=== PATIENT | male | born 1970 | race Caucasian/White ===

== ENCOUNTER 2017-09-19 03:33 | Emergency (ER) | payer OTHER, SELFPAY ==
[2017-09-19 03:34] VITALS: BP 149/97; PULSE 63; RESP 18; TEMP 36.4; O2SAT 99; BMI 22.1
--- NOTE | 2017-09-19 04:03 | ED.DCSUM_ITS ---
- ER Visit Summary Date of Service: 09/19/17 Chief Complaint: Rash History of Present Illness: The patient is a [address] Dumont. Patient reports that he is a rash that began 2 days ago. The rash began on his arms. He reports that it itches and guerrero. States that he has a history of eczema/psoriasis and was instructed to use sunscreen. Approximately 2 weeks ago he began using banana boat sunscreen on his arms and upper neck. Patient denies any change in soap, shampoo, laundry detergent, or fabric softener. No new clothing, bedding, carpeting, or pets. No new medications in the past month. Physical Examination: Vitals: Stable. Afebrile. General: Well-nourished and well-developed. Head: Normocephalic atraumatic. Neck: Supple, no lymphadenopathy. No JVD. Nontender. Cardiovascular: Regular rate and rhythm. No murmurs. Respiratory: No respiratory distress. Clear to auscultation bilaterally. Abdominal: Soft, nontender, nondistended, normal bowel sounds. No guarding, rebound, or peritoneal signs. Back: Nontender. Extremities: Erythema to the lateral antecubital fossa and forearms bilaterally. Scattered 3-5 mm erythematous lesions over his back. No hives. No induration or fluctuance. Skin: Normal color, no rash. Neurologic: Alert and oriented ?3. Cranial nerves II through XII are intact. Normal strength and sensation. Psych: Normal affect. Emergency Department Course and Treatment: Patient has already been using Benadryl at home without relief. He is given a dose of prednisone here. Treatment Plan: Patient will be discharged on prednisone instructed to follow- up his primary care physician in 3-5 days not improving. I did discuss them the likelihood that this is due to the sunscreen and have instructed him to not use this any longer. Return to the emergency department for any worsening symptoms. Disposition: To home in improved and stable condition. Impression: 1. Rash, uncertain cause. This note was generated with [employer] dictation software. It may contain incorrect words, spelling, and punctuation that were not noted in review of the chart prior to signing ED Disposition - Plan for ED Patient: Disposition: Home or Assisted Living Chief Complaint: Allergic Reaction Instructions: ED Dermatitis Contact Prescriptions: Prednisone [Deltasone] 60 mg PO DAILY #15 tablet Referrals: Irineo Dumont MD [Primary Care Provider] - 3-5 Days if not improving
[2017-09-19] MEDS: predniSONE 20 MG Tablet 60 MG PO (04:12)
[2017-09-19 04:13] VITALS: RESP 16
== END 2017-09-19 04:13 | disposition home or self-care (01) ==
PROVIDERS: Emergency Provider Emergency Medicine; Family Provider Family Medicine; PCP Family Medicine
DX: R21 Rash and other nonspecific skin eruption (principal); F17.200 Nicotine dependence, unspecified, uncomplicated
CPT/HCPCS: 99283

== ENCOUNTER 2021-10-23 16:43 | Emergency (ER) | payer OTHER, SELFPAY ==
[2021-10-23 16:43] VITALS: BP 118/92; PULSE 145; RESP 16; TEMP 36.8; O2SAT 98; BMI 20.7
--- NOTE | 2021-10-23 17:28 | ED.RN ---
PT PUT HIS CALL LIGHT ON. WHEN THIS NURSE WENT INTO THE ROOM TO SEE WHAT THE PT NEEDED HE REQUESTED PAIN MEDICINE. EXPLAINED TO PT THAT HE COULD NOT BE GIVEN ANYTHING TIL THE DR SEES HIM AND THEY WOULD BE IN SOON THEY COULD. PT THIS SAIDFUCK THIS PLACE, I CAN GO HOME AND BE IN PAIN, FUCK THIS PLACE:. PT THEN CLIMBED OUT OF THE BED AND PUT HIS SHOES ON CUSSING AT HIS S.O. THE WHOLE TIME. PT THEN AMBULATED FROM ER WITH THE ASSISTANCE OF HIS CANE ON HIS OWN POWER.
== END 2021-10-23 17:38 | disposition left against medical advice (07) ==
PROVIDERS: PCP Family Medicine
DX: M54.9 Dorsalgia, unspecified (principal)

== ENCOUNTER 2023-11-10 16:03 | Emergency (ER) | payer OTHER, MEDICARE, SELFPAY ==
[2023-11-10] VITALS (13 sets, daily range): BP systolic 116–145; BP diastolic 73–117; PULSE 63–183; RESP 12–26; TEMP 36.2–36.4; O2SAT 92–100; BMI 17.6
--- NOTE | 2023-11-10 16:13 | EKG12_ITS ---
Test Reason : HIGH HR Blood Pressure : / mmHG Vent. Rate : 177 BPM Atrial Rate : 000 BPM P-R Int : 000 ms QRS Dur : 106 ms QT Int : 302 ms P-R-T Axes : 000 078 086 degrees QTc Int : 518 ms Critical Test Result: High HR , STEMI Supraventricular tachycardia Nonspecific ST-T changes Abnormal ECG Confirmed by AMRIT TOSCANO, YULIYA ([id number]), editor farm journal SOHA MARTIN ([id number]) on 11/13/2023 9:50:09 AM Referred By: SAE Confirmed By:LENA MARCUS MD
[2023-11-10] MEDS: Adenosine 6 MG/2 ML Syringe IV (16:25)
[2023-11-10] MEDS: Adenosine 6 MG/2 ML Syringe 12 MG IV (16:30)
--- NOTE | 2023-11-10 16:39 | EKG12_ITS ---
Test Reason : REPEAT Blood Pressure : / mmHG Vent. Rate : 162 BPM Atrial Rate : 162 BPM P-R Int : 118 ms QRS Dur : 068 ms QT Int : 294 ms P-R-T Axes : 000 061 -47 degrees QTc Int : 482 ms Critical Test Result: High HR Sinus tachycardia Nonspecific ST and T wave abnormality Abnormal ECG Confirmed by AMRIT TOSCANO, YULIYA ([id number]), health editor SRUTHI RG ([id number]) on 11/13/2023 6:39:03 AM Referred By: Confirmed By:LENA MARCUS MD
--- NOTE | 2023-11-10 16:43 | EDS_ITS ---
HPI History of Present Illness Chief Complaint: Palpitations Informant: patient Onset/Context/Timing Onset: Today Timing: Continuous Quality: Racing Location: Chest Worsened by: Nothing Relieved by: Nothing Narrative Narrative: Patient with palpitations that began today. Patient states she has been having some pain in his left lower back. Patient went to the urgent care today. Patient states that they noticed his heart rate was elevated and referred him to the emergency department. Patient states he feels like his heart is racing. Patient denies any nausea or vomiting. Patient denies any shortness of breath or cough. Patient denies any fevers or chills. Patient states nothing makes his symptoms better nothing makes them worse. [facility] Medical History (Updated 11/10/23 @ 20:[address] Alli Barclay DO) Eczema Psoriasis Hypertension Home Medications ?Medication ?Instructions ?Recorded ?Last Taken ?Type metoprolol tartrate 25 mg tablet 25 mg PO BID 06/05/15 Unknown History verapamil 80 mg tablet PO 11/10/23 Unknown History Allergy/AdvReac Type Severity Reaction Status Date / Time cephalexin monohydrate (From Allergy Hives Verified 11/10/23 16:05 Keflex) Penicillins Allergy Anaphylaxis Verified 11/10/23 16:05 Surgical History (Updated 11/10/23 @ 16:[address] Alli Barclay, ) History of back surgery Social History (Updated 11/10/23 @ 16:[address] Alli Barclay, ) Smoking Status: Current every day smoker tobacco type: cigarettes substance use type: marijuana ROS ROS ED Constitutional Constitutional ED: Denies chills or fever(s) Eyes Eyes: Denies blurry vision or change in vision ENT ENT ED: Denies rhinorrhea or sore throat Cardiovascular Cardiovascular: Reports chest pain and palpitations Respiratory/Chest Respiratory/Chest: Denies cough or dyspnea Gastrointestinal Gastrointestinal: Denies nausea or vomiting Genitourinary Genitourinary ED: Denies dysuria or hematuria Musculoskeletal Musculoskeletal: Reports back pain; Denies neck pain Integumentary Reports rash; Denies abscess Neurologic Neurologic: Denies headache(s) or weakness Allergic/Immunologic Allergic/Immunologic ED: Denies mouth swelling or urticaria EXAM Physical Exam Const Vital Signs: 11/10/23 16:05 11/10/23 16:08 11/10/23 16:19 Temperature 97.1 F L Temperature Source Temporal Pulse Rate 79 183 H Pulse Rate [1 (Initial Baseline)] Pulse Rate [2] Respiratory Rate 18 Respiratory Rate [1 (Initial Baseline)] Respiratory Rate [2] Respiratory Effort Normal Non-Labored Blood Pressure 135/88 H Blood Pressure [1 (Initial Baseline)] Blood Pressure [2] Blood Pressure Mean 103 Pulse Ox 95 Oxygen Delivery Method Room Air Oxygen Delivery Method [1 (Initial Baseline)] Oxygen Delivery Method [2] Oxygen Flow Rate (L/min) [1 (Initial Baseline)] Oxygen Flow Rate (L/min) [2] 11/10/23 16:21 11/10/23 16:57 11/10/23 16:58 Temperature 97.5 F L Temperature Source Pulse Rate 176 H 169 H Pulse Rate [1 (Initial Baseline)] Pulse Rate [2] Respiratory Rate 12 26 H Respiratory Rate [1 (Initial Baseline)] Respiratory Rate [2] Respiratory Effort Blood Pressure 140/106 H 132/117 H Blood Pressure [1 (Initial Baseline)] Blood Pressure [2] Blood Pressure Mean 117 Pulse Ox 92 99 Oxygen Delivery Method Room Air Room Air Room Air Oxygen Delivery Method [1 (Initial Baseline)] Oxygen Delivery Method [2] Oxygen Flow Rate (L/min) [1 (Initial Baseline)] Oxygen Flow Rate (L/min) [2] 11/10/23 17:08 11/10/23 17:12 11/10/23 17:22 Temperature Temperature Source Pulse Rate Pulse Rate [1 (Initial Baseline)] 160 H Pulse Rate [2] 87 Respiratory Rate Respiratory Rate [1 (Initial Baseline)] 25 H Respiratory Rate [2] 18 Respiratory Effort Blood Pressure Blood Pressure [1 (Initial Baseline)] 132/117 H Blood Pressure [2] 116/73 Blood Pressure Mean Pulse Ox Oxygen Delivery Method Room Air Room Air Oxygen Delivery Method [1 (Initial Baseline)] Nasal Cannula Oxygen Delivery Method [2] Nasal Cannula Oxygen Flow Rate (L/min) [1 (Initial Baseline)] 3 Oxygen Flow Rate (L/min) [2] 3 11/10/23 17:24 11/10/23 18:00 11/10/23 19:00 Temperature Temperature Source Pulse Rate 63 69 64 Pulse Rate [1 (Initial Baseline)] Pulse Rate [2] Respiratory Rate 21 H 16 16 Respiratory Rate [1 (Initial Baseline)] Respiratory Rate [2] Respiratory Effort Blood Pressure 133/83 H 122/81 H 118/91 H Blood Pressure [1 (Initial Baseline)] Blood Pressure [2] Blood Pressure Mean 99 94 100 Pulse Ox 99 97 99 Oxygen Delivery Method Room Air Room Air Room Air Oxygen Delivery Method [1 (Initial Baseline)] Oxygen Delivery Method [2] Oxygen Flow Rate (L/min) [1 (Initial Baseline)] Oxygen Flow Rate (L/min) [2] 11/10/23 20:00 Temperature Temperature Source Pulse Rate 93 Pulse Rate [1 (Initial Baseline)] Pulse Rate [2] Respiratory Rate 18 Respiratory Rate [1 (Initial Baseline)] Respiratory Rate [2] Respiratory Effort Blood Pressure 139/89 H Blood Pressure [1 (Initial Baseline)] Blood Pressure [2] Blood Pressure Mean 105 Pulse Ox 99 Oxygen Delivery Method Room Air Oxygen Delivery Method [1 (Initial Baseline)] Oxygen Delivery Method [2] Oxygen Flow Rate (L/min) [1 (Initial Baseline)] Oxygen Flow Rate (L/min) [2] Positive well nourished and well developed General Appearance ED: well developed and NAD HEENT Reports moist mucous membranes Neck supple and no JVD Chest Wall inspection of chest normal and palpation of chest normal Resp normal respiratory effort and clear to auscultation bilaterally Cardio regular rhythm Rate: tachycardic GI non-tender and non-distended Palpation: soft Extremity General Extremety ED: Negative for edema or tenderness General Extremity: Negative for edema Neuro oriented x3, CN's II-XII intact bilaterally and no sensory deficits noted Sensorium / Orientation: alert Motor Exam: strength 5/5 throughout Psych mental status grossly normal MDM MDM MDM Narrative Medical decision making narrative: Differential diagnose includes cardiac dysrhythmia, cardiac ischemia, electrolyte abnormality, pneumonia, pulmonary embolism, and viral illness. CBC will be obtained to assess for leukocytosis and anemia. Basic metabolic profile will be obtained to assess for electrolyte abnormality and renal function. Hig h-sensitivity troponin will be obtained to assess for cardiac ischemia. 2-hour repeat high-sensitivity troponin will be obtained to assess for ongoing cardiac ischemia. EKG will be obtained to assess for cardiac dysrhythmia and cardiac ischemia. Chest x-ray will be obtained to assess for pneumonia and pneumothorax. Lab Data Attestation: I reviewed the patient's lab results. Lab results narrative: CBC was reviewed. Hemoglobin was elevated at 18.4 and hematocrit was 55.4. The remainder was within normal limits. Basic metabolic profile was reviewed and was within normal limits. High-sensitivity troponin was reviewed and was normal at 12. 2-hour repeat high-sensitivity troponin was reviewed and was normal at 8. Labs: Laboratory Results - last 24 hr 11/10/23 11/10/23 16:25 19:00 WBC 8.9 RBC 5.93 Hgb 18.4 H* Hct 55.4 H MCV 93.4 MCH 31.0 MCHC 33.2 RDW Std Deviation 48.9 H RDW Coeff of Varinder 14.0 Plt Count 234 MPV 10.8 Immature Gran % (Auto) 0.300 Neut % (Auto) 72.0 H Lymph % (Auto) 13.5 L Burt % (Auto) 9.5 Eos % (Auto) 4.2 Baso % (Auto) 0.5 Absolute Neuts (auto) 6.4 Absolute Lymphs (auto) 1.20 Nucleated RBC % 0 Sodium 137 Potassium 3.9 Chloride 103 Carbon Dioxide 25.0 Anion Gap 9 BUN 13 Creatinine 0.90 Estim Creat Clear Calc 73.01 Est GFR (MDRD) Af Amer 113 Est GFR (MDRD) Non-Af 93 BUN/Creatinine Ratio 14.5 Glucose 84 Calcium 9.6 Troponin I High Sens 12 8 Radiography Chest X-Ray - ED: 1 View, Read by ED Physician, Read by Radiologist and No Acute Disease Diagnostic Testing: Clinical Impression(s) from Imaging Studies Chest X-Ray 11/10/23 17:32 IMPRESSION: Normal x-ray examination of the chest. Electronically Signed: Maurisio Leong MD at 18:46 EDT , Portable 1 view chest x-ray was obtained. On my independent interpretation, lung costa are clear. There is normal cardiac silhouette. Bony thorax is normal. There is no acute process noted. Radiologist also interpreted the x- ray and agrees. EKG Initial EKG: Attestation: I personally reviewed and interpreted this EKG as follows: Interpretation: SVT (177) Comments: EKG was obtained. On my independent interpretation, shows supraventricular tachycardia with a rate of 177. QRS interval was normal at 106 ms. QTc interval was 518 ms. Whittier was normal at 78. There are nonspecific ST-T wave changes. This is likely rate related. Prior EKG tracings: not available for review Prior: No Prior Follow-up EKG: Attestation: I personally reviewed and interpreted this EKG as follows: Interpretation: Sinus Rhythm (79) Comments: Repeat EKG was obtained. On my independent interpretation, it shows a normal sinus rhythm with a rate of 79. MD interval was normal at 112 ms. QRS interval was normal at 74 ms. QTc interval was normal at 433 ms. Whittier is normal at 36. There are nonspecific ST-T wave changes noted. There is right atrial enlargement noted. Treatment and Re-Evaluation :: Patient was given adenosine 6 mg. Patient's heart rate improved briefly but then returned into the 170s. Patient was given adenosine 12 mg. Again, the patient's heart rate improved briefly to a normal sinus rhythm but then reverted to SVT in the 170s again. Patient was given aspirin. The risks and benefits of electrical cardioversion were discussed with the patient. Patient is agreeable with going forward with the procedure. Patient was given the opportunity ask questions. Patient had no further questions. Patient was placed on continuous cardiac and pulse oximeter monitors. The patient was given 80 mg propofol. After adequate sedation, the patient was cardioverted with 100 J synchronized cardioversion. Patient converted to a normal sinus rhythm. Patient tolerated procedure well. Patient had no hypoxic episodes. Patient had no hypercapnic episodes. Patient remained in a normal sinus rhythm throughout his emergency department stay. Patient had 2 negative troponins after cardioversion. Patient was instructed to continue his medications as previously prescribed. Patient was instructed to follow-up with his primary care physician in 5 to 7 days. Patient understood and was agreeable with the plan. All questions were answered. Procedures Procedural Sedation 1 (Initial Baseline): Consent Signed: Yes Any Problems With Anesthesia: No You/Your family experience fever (hyperthermia) w/anesthesia: No Sedation medication: Propofol Dose: 80 Route: IV Maliampati Score: Class I ASA Classification: II Discharge Plan Triage Chief Complaint: Palpitations ED Provider: Alli Barclay Dx/Rx/DC Orders Clinical Impression: Supraventricular tachycardia, Hypertension Instructions: ED Understanding Supraventricular Tachycardia (SVT) Prescriptions: No Action metoprolol tartrate 25 MG tablet 25 mg PO BID verapamil 80 mg tablet PO Primary Care Provider: Irieno Dumont Referrals: Irineo Dumont MD [Primary Care Provider] - 5-7 Days Ifrah Merida [Non-Staff] - 5-7 Days Print Language: Slovenian Disposition Disposition: Home, Self Care
--- NOTE | 2023-11-10 16:47 | NURSING ---
NO OLD EKG
[2023-11-10] MEDS: Aspirin 81 MG TAB.CHEW 324 MG PO (16:55)
[2023-11-10] MEDS: 0.9% Normal Saline (1000mL) 1,000 ML 999 ML IV (16:56)
[2023-11-10] MEDS: Propofol 200 MG/20 ML Vial IV BOLUS (17:06)
--- NOTE | 2023-11-10 17:19 | EKG12_ITS ---
Test Reason : REPEAT Blood Pressure : / mmHG Vent. Rate : 079 BPM Atrial Rate : 079 BPM P-R Int : 112 ms QRS Dur : 074 ms QT Int : 378 ms P-R-T Axes : 075 036 053 degrees QTc Int : 433 ms Normal sinus rhythm Right atrial enlargement Nonspecific ST abnormality Abnormal ECG Confirmed by AMRIT TOSCANO, YULIYA ([id number]), sound editor SRUTHI RG ([id number]) on 11/13/2023 6:38:47 AM Referred By: Confirmed By:LENA MARCUS MD
--- NOTE | 2023-11-10 17:32 | RAD_ITS ---
STUDY: X-RAY CHEST REASON FOR EXAM: Male, 53 years old. Chest pain TECHNIQUE: Single AP portable view of the chest. COMPARISON: None. FINDINGS: The lungs are clear and expanded. There is no demonstrated pleural abnormality. Normal size heart. Normal mediastinum and berenice. Normal visualized pulmonary arteries. Normal visualized aortic arch and descending thoracic aorta. Normal visualized thoracic spine. Normal visualized ribs, clavicles, and shoulders. There is no demonstrated abnormality of the visualized soft tissue structures of the upper abdomen. RAD/Chest 1 View (Portable) IMPRESSION: Normal x-ray examination of the chest. Electronically Signed: Maurisio Leong MD at 18:46 EDT ,
[2023-11-10 17:39] LABS: Absolute Neutrophil Count 6.4 X10^3/uL (2.0-7.7); Basophil# 0.04 X10^3/uL; Basophil% 0.5 % (0-1); Eosinophil# 0.37 X10^3/uL; Eosinophils% 4.2 % (0-5); Hematocrit 55.4 % (40-54); Lymphocyte % 13.5 % (19-41); Mean Corp Hgb Conc 33.2 g/dL (32-36); Mean Corpuscular Volume 93.4 fL (80-94); Mean Platelet Vol. 10.8 fl (6.2-12.0); Monocyte# 0.84 X10^3/uL; Monocyte% 9.5 % (0-10); NRBC Flagged by Analyzer 0 % (0-5); Platelet Count 234 K/mm3 (150-450); RBC Distribution Width SD 48.9 fl (35.1-43.9); Red Blood Count 5.93 M/mm3 (4.6-6.2); White Blood Count 8.9 K/mm3 (4.4-11.0)
--- NOTE | 2023-11-10 17:44 | NURSING ---
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 States he has been drinking approx at 12 pack/day. Emotional support provided. Asked pt if he is interested in any resources or assistance to quit drinking. Pt declines at this time and thankful for support. Pt does not make any reference to SI or HI.
[2023-11-10 17:47] LABS: Hemoglobin 18.4 g/dL (13.0-16.5)
[2023-11-10 18:10] LABS: Anion Gap 9 (5-15); BUN 13 mg/dL (7-18); BUN/Creat Ratio 14.5 RATIO (10-20); Calcium,Total 9.6 mg/dL (8.5-10.1); Chloride 103 mmol/L (98-107); EST Glomerular Filtration Rate 93 mL/min (>60); Est Glom Filt Rate - Afr Amer 113 mL/min (>60); Estimated Creatinine Clearance 73.01 ml/min; Glucose 84 mg/dL (74-106); Potassium 3.9 mmol/L (3.5-5.1); Sodium Level 137 mmol/L (136-145); Troponin-I HS (w/2H Reflex) 12 pg/mL (3.0-78.0)
[2023-11-10 19:33] LABS: Reflex Troponin-HS? (from REC) Y
[2023-11-10 19:56] LABS: Troponin-I HS 8 pg/mL (3.0-78.0)
[2023-11-11 13:16] LABS: Pathologist Review Reviewed
== END 2023-11-10 20:37 | disposition home or self-care (01) ==
PROVIDERS: Emergency Provider Emergency Medicine; PCP Family Medicine; Visit Provider Emergency Medicine
DX: I47.10 Supraventricular tachycardia, unspecified (principal); I10 Essential (primary) hypertension; F17.210 Nicotine dependence, cigarettes, uncomplicated; F12.90 Cannabis use, unspecified, uncomplicated
CPT/HCPCS: 71045; 80048; 84484; 85025; 92960; 93005; 99284; A4216; J0153